=== PATIENT | male | born 1955 ===

== ENCOUNTER 2018-03-24 10:52 | Day surgery (SDC) | payer MEDICARE, OTHER ==
[2017-09-27 14:51] VITALS: BMI 27.1
[2018-03-24] MEDS ORDERED: Gentamicin 160 MG in Sodium Chloride 0.9% 100 ML IVPB STA (13:34)
[2018-03-24] MEDS ORDERED: Ciprofloxacin 400mg/200ml D5W 400 MG/200 ML BAG IVPB ONE (14:55)
[2018-03-24] MEDS ORDERED: Midazolam 2 MG/2 ML VIAL ONE (15:07)
[2018-03-24] MEDS ORDERED: Propofol 10 mg/ml Inj (20 ML) ONE (15:07)
--- NOTE | 2018-03-24 15:54 | PCM.SURG1 ---
Surgeon's Initial Post Op Note - Surgeon's Notes Surgeon: Clarence Flat Drier: BRYCE Type of Anesthesia: General LMA Anesthesia Administered By: STAFF Pre-Operative Diagnosis: BPH/ríos Operative Findings: same Post-Operative Diagnosis: same Operation Performed: TULAP Specimen/Specimens Removed: NA Estimated Blood Loss: EBL {In ML}: 0 Blood Products Given: N/A Drains Used: No Drains Post-Op Condition: Good Date of Surgery/Procedure: 03/24/18 Time of Surgery/Procedure: 15:53
[2018-03-24] MEDS ORDERED: Lactated Ringer's 1,000 ML IV ONE (16:10)
[2018-03-24 17:37] VITALS: TEMP 97.8; O2SAT 96
[2018-03-24 17:48] VITALS: BP 107/62; PULSE 72; RESP 20
--- NOTE | 2018-03-25 03:55 | OP ---
PROCEDURE DATE: 03/24/2018 PREOPERATIVE DIAGNOSIS: Benign prostatic hypertrophy with bladder outlet obstruction. POSTOPERATIVE DIAGNOSIS: Benign prostatic hypertrophy with bladder outlet obstruction. PROCEDURE: Transurethral laser ablation of the prostate. SURGEON: Dimitri Lima MD FINDINGS: Trilobar hypertrophy with significant bladder outlet obstruction and compensatory hypertrophy of the bladder. DESCRIPTION OF PROCEDURE: Prior to the procedure, a detailed informed consent was obtained from the patient, listing all risks and complications and alternative methods of treating BPH with bladder outlet obstruction. The patient agreed to accept the risks of TULAP and was brought into the room, and a time-out was taken according to the rules and regulations of [facility]. The patient was then cystoscoped with a laser cystoscope and previous cystoscopic findings were confirmed. Laser working element was inserted and vaporization of the prostate was begun at 11 o' clock just distal to the bladder neck and carried out to just proximal to the verumontanum. The base tissue of the left lateral lobe and the roof tissue resected in similar way. Care was taken to ensure injury of the verumontanum, external sphincter, ureteral orifices did not occur. The patient tolerated this procedure well. A #20 two-way 5 mL catheter was then inserted, and the patient was sent to the recovery area in good condition. Dimitri Lima MD
== END 2018-03-24 17:53 | disposition home or self-care (01) ==
LOC: C.SDS 10:52
PROVIDERS: ATTEND Urology
DX: N40.1 Benign prostatic hyperplasia with lower urinary tract symptoms (principal); N32.0 Bladder-neck obstruction; N13.8 Other obstructive and reflux uropathy
CPT/HCPCS: 52648; J0744; J1580; J7120